=== PATIENT | male | born 1975 | race Caucasian/White ===

== ENCOUNTER 2021-02-26 15:08 | Emergency (ER) | payer MEDICARE, MEDICAID ==
[2021-02-26] MEDS ORDERED: HYDROmorphone 1 MG/ML Syringe IM ONE (15:20)
[2021-02-26] MEDS ORDERED: Ondansetron 4 MG Tab.DIS PO ONE (15:20)
--- NOTE | 2021-02-26 15:28 | EDM.PDOC ---
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 It is behind his eyes, throbbing, bilateral and somewhat worse on the left. Fairly sudden onset yesterday. Nausea and intermittent vomiting. No fevers or chills, no recent trauma. Onset: Sudden (Started fairly suddenly after getting up yesterday morning) Duration: Hour(s): (About 24 hours) Location: Reports: Head Headache Pain Score (Numeric/FACES): 7 - Related Data Allergies Allergy/AdvReac Type Severity Reaction Status Date / Time Penicillins Allergy Cannot Verified 02/26/21 15:22 Remember Home Meds: Home Meds Desvenlafaxine Succinate [Desvenlafaxine Succinate ER] 50 mg PO DAILY 02/26/21 [History] Imipramine HCl [Imipramine] 25 mg PO DAILY 02/26/21 [History] Sulfameth/Trimethoprim 1 tab PO DAILY 02/26/21 [History] ED ROS GENERAL - Review of Systems Review Of Systems: See Below Constitutional: Reports: Malaise. Denies: Fever, Chills HEENT: Denies: Vision Change Respiratory: Denies: Shortness of Breath Cardiovascular: Denies: Chest Pain GI/Abdominal: Reports: Nausea : Reports: Other (Chronic indwelling catheter due to paraplegia) Musculoskeletal: Reports: Other (Injury to right foot 2-1/2 years ago has never been checked) Skin: Reports: No Symptoms Neurological: Reports: Headache, Other (According to the the patient has had a lot of problems with autonomic instability over the past 6 to 7 months since removal of a gangrenous gallbladder. Recheck labs and UAs have been negative) - Physical Exam Exam: See Below Exam Limited By: No Limitations General Appearance: Alert, Mild Distress, Other (Looks fairly uncomfortable, as pedro luis for pain control before history could be obtained) Eye Exam: Bilateral Eye: EOMI, PERRL Head Exam: Atraumatic Respiratory/Chest: No Respiratory Distress Cardiovascular: Regular Rate, Rhythm GI/Abdominal: Soft, Other (No feeling in the patient's abdomen, no firmness or m asses felt) Neuro Exam (Abbreviated): Alert, Oriented, Slow to Respond, Other (No motor or sensation below the chest) Extremities: Other (Lower extremities are atrophic, both feet have a bluish color due to vascular insufficiency, no skin breakdown.) Psychiatric: Flat Affect Course - Vital Signs Last Recorded V/S: Last Vital Signs Temp 95.7 F L 02/26/21 15:54 Pulse 91 02/26/21 17:22 Resp 18 02/26/21 15:54 BP 99/66 02/26/21 17:22 Pulse Ox 95 02/26/21 17:04 - Orders/Labs/Meds Orders: Active Orders 24 hr Category Date Time Status Foot Comp Min 3V Rt [CR] Stat Exams 02/26/21 16:37 Taken Meds: Medications Discontinued Medications Generic Name Dose Route Start Last Admin Trade Name Kamq PRN Reason Stop Dose Admin Hydromorphone HCl 1 mg 02/26/21 15:20 02/26/21 15:29 Hydromorphone 1 Mg/Ml Syringe IM 02/26/21 15:21 1 mg ONETIME ONE Administration Sodium Chloride 1,000 mls @ 1,000 mls/hr 02/26/21 16:15 02/26/21 16:21 Normal Saline IV 1,000 mls/hr ASDIRECTED KAREL Administration Ondansetron HCl 4 mg 02/26/21 15:20 02/26/21 15:29 Ondansetron 4 Mg Tab.Dis PO 02/26/21 15:21 4 mg ONETIME ONE Administration Sumatriptan Succinate 6 mg 02/26/21 15:50 02/26/21 15:58 Sumatriptan 6 Mg/0.5 Ml Sdv SUBCUT 02/26/21 15:51 6 mg ONETIME ONE Administration - Re-Assessments/Exams Free Text/Narrative Re-Assessment/Exam: 02/26/21 15:51 Patient was given 1 mg of Dilaudid IM, along with 4 mg of sublingual Zofran. CT scan was done which showed no acute findings. His family then arrived and admitted that he does have treatment for migraines which come on fairly suddenly quite often. He was still having some headache but the nausea was gone. He was then given 6 mg of subcu Imitrex. 02/26/21 17:01 Patient's headache basically resolved but he did get fairly hypotensive at one point so was given 1 L of fluid. His wanted further work-up to evaluate his autonomic neurologic instability over the past couple of years, especially the last 6 months but he is already had numerous labs and monitoring and other than a right foot x-ray I really had nothing to offer from an emergency standpoint. 02/26/21 17:26 Atrophy of the distal aspect of the right fifth metatarsal and diffuse osteoporosis of the findings of the foot x-ray, nothing acute. Patient remained stable after the fluids and had significant improvement of his headache. He will be discharged and encouraged to continue his regular medications, and see if he can get a consult to neurology through his primary provider to discuss the family's ongoing concern about his autonomic nerve instability. Departure - Departure Time of Disposition: 17:42 Disposition: Home, Self-Care 01 Clinical Impression: Vascular headache, Autonomic instability - Discharge Information Instructions: Migraine Headache Referrals: PCP,Unknown [Primary Care Provider] - Forms: ED Department Discharge Care Plan Goals: Stay hydrated, use your prescription medications as needed, and discuss a neurology consult with your primary provider to address the persistent autonomic instability you are concerned about. Return to the emergency room at any time for any acute concerns. - My Orders Last 24 Hours: My Active Orders 02/26/21 16:37 Foot Comp Min 3V Rt [CR] Stat - Assessment/Plan Last 24 Hours: My Active Orders 02/26/21 16:37 Foot Comp Min 3V Rt [CR] Stat
[2021-02-26] MEDS ORDERED: SUMAtriptan 6 MG/0.5 ML SDV SUBCUT ONE (15:50)
[2021-02-26] MEDS ORDERED: Sodium Chloride 0.9% 1,000 ML IV SCH (16:15)
--- NOTE | 2021-02-26 16:21 | CRLCT ---
For Patients: As a result of the Cures Act, medical imaging exams and procedure reports are released immediately into your electronic medical record. You may view this report before your referring provider. If you have questions, please contact your health care provider. INDICATION: Severe headaches. COMPARISON: None. TECHNIQUE: Noncontrast CT head. FINDINGS: Normal brain parenchymal morphology. No acute intracranial hemorrhage, acute infarct, focal edema, mass effect, or fracture. No midline shift. No abnormal ventricular dilatation. Normal calvarium and skull base. Visualized paranasal sinuses and mastoid air cells are clear. Normal orbits bilaterally. IMPRESSION: 1. No acute intracranial abnormality. 2. Normal brain parenchymal morphology Please note that all CT scans at this facility use dose modulation, iterative reconstruction, and/or weight-based dosing when appropriate to reduce radiation dose to as low as reasonably achievable. Dictated by Kel Becerra MD @ 02/26/2021 4:19:09 PM (Electronically Signed)
--- NOTE | 2021-02-27 09:08 | CR ---
Foot Comp Min 3V Rt CLINICAL HISTORY: Injury FINDINGS: The bones are moderately osteoporotic. There is deformity and foot angulation. Patient is paraplegic. There is deformity of the tibiotalar joint as well as some carpal junction. No fracture is seen. IMPRESSION: There are chronic articular and bony changes in the foot. Patient is paraplegic Deformity of the distal fifth metatarsal appears chronic No acute fracture or dislocation
== END 2021-02-26 18:33 | disposition home or self-care (01) ==
LOC: JP.ED 15:08
DX: G44.1 Vascular headache, not elsewhere classified (principal); G90.9 Disorder of the autonomic nervous system, unspecified; Z88.0 Allergy status to penicillin
CPT/HCPCS: 70450; 73630; 96372; 99285; A9270; J1170; J3030; J7030